=== PATIENT | male | born 1960 | race Caucasian/White ===

== ENCOUNTER 2016-02-25 06:52 | Observation (INO) | payer OTHER ==
[2016-02-13 11:20] VITALS: BMI 16.0
--- NOTE | 2016-02-13 12:01 | PAT Medication Instructions ---
Service Date Feb 13, 2016. Current Home Medication List Multivitamin (Multivitamin), 1 TAB PO QAM Medication Instructions For Your Scheduled Surgery - Hold the following medications the morning of surgery: Multivitamin (Multivitamin), 1 TAB PO QAM If you have any questions please call us at [phone] or [phone] ( [place]) or [phone]
[2016-02-13 12:47] LABS: BASO % 0.9 %; BASO ABS # 0.04 K/uL (0-0.2); COMPLETE YES; EOS % 2.5 %; HEMATOCRIT 43.3 % (42-52); LYMPH % 23.4 %; LYMPH ABS # 1.03 K/uL (1.2-3.4); MEAN CELL VOLUME 93.9 fL (80-100); MEAN CORPUSCULAR HEMOGLOBIN 32.5 pg (25-34); MEAN CORPUSCULAR HGB CONC 34.6 g/dl (32-36); MEAN PLATELET VOLUME 10.7 fL (7.4-10.4); MONO % 8.6 %; NEUT % 64.6 %; PLATELET COUNT 215 K/uL (130-400); RED BLOOD COUNT 4.61 M/uL (4.7-6.1); WHITE BLOOD COUNT 4.41 K/uL (4.8-10.8)
[2016-02-13 13:22] LABS: BUN/CREATININE RATIO 16.1 (10-20); CALCIUM 9.4 mg/dl (8.5-10.1); CREATININE 0.89 mg/dl (0.60-1.40); POTASSIUM 4.5 mmol/L (3.5-5.1)
[2016-02-25] VITALS (11 sets, daily range): BP systolic 87–107; BP diastolic 48–57; PULSE 43–58; TEMP 36.2–36.6; O2SAT 94–99; Ht 200.7 cm; Wt 65.9 kg
[~2016-02-25] VITALS: Ht 200.7 cm; Wt 65.9 kg
[~2016-02-25 06:52] MED LIST: CEFAZOLIN 2000 MG/60 ML D5W IV SCH; LACTATED RINGER'S 1000ML 1,000 ML IV SCH; MULT-506 PO
[2016-02-25] MEDS ORDERED: LEVO50TA6 PO (07:18)
[2016-02-25] MEDS ORDERED: MIDAZOLAM HCL 1 MG/ML 2ML VIAL ONE (07:38)
[2016-02-25] MEDS ORDERED: FENTANYL CITRATE INJ 50 MCG/1 ML 2 ML VIAL ONE (07:38)
[2016-02-25] MEDS ORDERED: PROPOFOL IV EMULSION 10 MG/ML 20 ML VIAL IV ONE (07:38)
[2016-02-25] MEDS ORDERED: ROCURONIUM BROMIDE 10 MG/ML 5 ML VIAL ONE (07:38)
[2016-02-25] MEDS ORDERED: LIDOCAINE HCL 2% 2 ML VIAL (20MG/ML) ONE (07:38)
--- NOTE | 2016-02-25 09:11 | History & Physical Bridge Note ---
H&P Re-Evaluation Bridge Note: I have examined the patient, reviewed the History & Physical and in the interval since the performance of the History & Physical I have noted the following changes of clinical significance: No changes noted
[2016-02-25] MEDS ORDERED: LACTATED RINGER'S 1000ML 1,000 ML IV PRN (09:16)
[2016-02-25] MEDS ORDERED: FENTANYL CITRATE INJ 50 MCG/1 ML 2 ML VIAL IV PRN (09:30)
[2016-02-25] MEDS ORDERED: ONDANSETRON INJ 2 MG/ML 2 ML VIAL IV PRN ×2 (09:30→11:00)
[2016-02-25] MEDS ORDERED: DEXAMETHASONE SOD INJ 4 MG/ML VIAL ONE (10:08)
[2016-02-25] MEDS ORDERED: EpHEDrine SULFATE 50MG/5ML SYR ONE (10:08)
[2016-02-25] MEDS ORDERED: ONDANSETRON INJ 2 MG/ML 2 ML VIAL ONE (10:08)
[2016-02-25] MEDS ORDERED: NEOSTIGMINE METHYLSULFATE 5 MG/5 ML SYR ONE (10:09)
[2016-02-25] MEDS ORDERED: GLYCOPYRROLATE INJ 0.2 MG/ML VIAL ONE (10:09)
[2016-02-25] MEDS ORDERED: CEFAZOLIN SOD 1 GM VIAL IRRIG ONE (10:52)
[2016-02-25] MEDS ORDERED: BUPIVACAINE 0.5 % 5 MG/1 ML MPF 30ML VIAL INJ ONE (10:52)
--- NOTE | 2016-02-25 10:55 | [facility] Operative Report ---
Operative Report Operative Date Feb 25, 2016. Pre-Operative Diagnosis Inguinal Hernia, Left. History of Right Inguinal Hernia. Right Inguinal Hernia. Post-Operative Diagnosis same Procedure(s) Performed bilateral inguinal hernia repair Surgeon Dr. Sandro Rice Management Consultant Surgeon(s) Tom Myers PA-C Estimated Blood Loss 20mL Findings direct defects Anesthesia gen Complication(s) None Disposition Recovery Room / PACU I attest to the content of the Intraoperative Record and any orders documented therein. Any exceptions are noted below.
[2016-02-25] MEDS ORDERED: HYDROCODONE/ACETAMOPHEN 5/325MG TAB PO PRN ×2 (11:00)
[2016-02-25] MEDS ORDERED: HYDROmorphone INJ 1 MG/ML SYR IV PRN ×2 (11:00)
[2016-02-25] MEDS ORDERED: PROMETHAZINE HCL INJ 25 MG in SODIUM CHLORIDE 0.9% 50ML 50 ML IV PRN (11:00)
--- NOTE | 2016-02-25 11:27 | OPERATIVE REPORT ---
DATE OF OPERATION: 02/25/2016 NAME OF OPERATION: Bilateral inguinal hernia repair. PREOPERATIVE DIAGNOSIS: Bilateral inguinal hernias. POSTOPERATIVE DIAGNOSIS: Same with direct defects. STAFF SURGEON: Dr. Rice. SHOE CEMENTER: Armin Myers PA-C. ANESTHESIA: General. PROCEDURE: The patient was brought in the operating room and placed on the operating table in supine position. His abdomen was prepped and draped in usual fashion. Arcos catheter was placed. 0.5% plain Marcaine was used to anesthetize both incisions bilaterally, skin and subcutaneous tissue and deep tissue. Incision was made in the right side parallel to the inguinal ligament, carrying dissection down identifying the external oblique fibers incising them along their length to the external ring mobilizing the cord structures, identifying a relatively large direct hernia sac on the right side. It was reduced. A large mesh plug was placed into the defect, secured to surrounding tissue using 2-0 Ethibond suture, then a large mesh patch placed over the plug and around the cord structures secured using 2-0 Ethibond suture. The site was irrigated with antibiotic solution. The external oblique fibers closed over the mesh around the cord structures using 2-0 Ethibond suture. The site was anesthetized using 0.5% plain Marcaine. Subcutaneous tissue reapproximated using 2-0 plain catgut suture then the skin reapproximated using 4-0 nylon suture. The left side was approached. Same incision was performed carrying dissection down through the external oblique fibers, identifying a smaller direct hernia sac which was reduced. Again, a mesh plug was used and secured in the same fashion with a mesh patch placed over this and around the cord structures both sides being careful to identify the ilioinguinal and iliohypogastric nerves. The subcutaneous tissue was then reapproximated using 2-0 plain catgut suture then the skin reapproximated using 4-0 nylon suture. Dressings were applied bilaterally. The patient transferred to recovery room in stable condition. I attest to the content of the Intraoperative Record and any orders documented therein. Any exceptio ns are noted below.
--- NOTE | 2016-02-25 11:37 | Anesthesiology Progress Note ---
Anesthesia Post Op Note Date & Time Feb 25, 2016 at 11:36 Vital Signs Pain Intensity: 0 Vital Signs Past 12 Hours Date Time Temp Pulse Resp B/P Pulse Ox O2 Delivery O2 Flow Rate FiO2 02/25/16 11:30 47 16 103/58 100 Nasal Cannula 2 02/25/16 11:20 49 14 105/61 100 Mask 10 02/25/16 11:10 58 20 109/60 100 Mask 10 02/25/16 11:07 36.2 52 15 110/65 100 Mask 10 02/25/16 07:18 36.2 51 16 99/53 99 Room Air Notes Mental Status: alert / awake / arousable, participated in evaluation Pt Amnestic to Procedure: Yes Nausea / Vomiting: adequately controlled Pain: adequately controlled Airway Patency, RR, SpO2: stable & adequate BP & HR: stable & adequate Hydration State: stable & adequate Anesthetic Complications: no major complications apparent
[2016-02-25] MEDS ORDERED: LACTATED RINGER'S 1000ML 1,000 ML IV SCH (13:30)
[2016-02-25] MEDS ORDERED: IV FLUIDS COMPLETED PRN (13:45)
[2016-02-25] MEDS: MAGNESIUM HYDROXIDE SUSP 30 ML UDC PO SCH (14:49)
[2016-02-25] MEDS: DOCUSATE SODIUM/SENNA 50/8.6MG TAB PO SCH (14:49)
[2016-02-25] MEDS ORDERED: CEPH500C2 PO (15:21)
[2016-02-25] MEDS ORDERED: HYDR-5688 PO (15:21)
--- NOTE | 2016-02-25 15:24 | Discharge Instructions ---
Discharge Instructions Admission Reason for Admission: Inguinal Hernia Discharge Discharge Diagnosis / Problem: bilateral inguinal hernias Discharge Goals Goal(s): Decrease discomfort, Improve function, Improve disease control Activity Recommendations Activity Limitations: as noted below Lifting Limitations: no more than 25 pounds Exercise/Sports Limitations: until after follow-up appointment May Resume Sexual Activity: when tolerated Shower/Bathe: tomorrow Driving or Machine Use: 1 week . Instructions / Follow-Up Instructions / Follow-Up SPECIAL CARE INSTRUCTIONS: * Cover incisions and change daily for comfort/drainage. * Avoid constipation- may use Milk of magnesia and Senokot S twice daily as directed on the package * May use ibuprofen for pain as tolerated. * Expect some swelling and bruising. Call your doctor if: * Temperature above 101 degrees * Pain not relieved by pain medicine ordered * There is increased drainage or redness from any incision * You have any unanswered questions or concerns [phone]. FOLLOW UP VISIT: If not already scheduled, please call the office for a follow-up visit. for next week- some sutures OFFICE PHONE NUMBER: Dr. Rice Office Current Hospital Diet Patient's current hospital diet: Regular Diet Discharge Diet Recommended Diet: Regular Diet Procedures Procedures Performed: Bilateral Inguinal Hernia repair with Mesh Pending Studies Studies pending at discharge: no Medical Emergencies . Who to Call and When: Medical Emergencies: If at any time you feel your situation is an emergency, please call 911 immediately. . Non-Emergent Contact Non-Emergency issues call your: Surgeon . "Provider Documentation" section prepared by Sandro Rice. VTE Core Measure Inpt VTE Proph given/why not?: SCD's
[2016-02-25] MEDS: CEFAZOLIN IV 1,000 MG in DEXTROSE 5% 50ML 50 ML IV SCH ×2 (15:34→22:12)
[2016-02-26] MEDS: CEFAZOLIN IV 1,000 MG in DEXTROSE 5% 50ML 50 ML IV SCH ×2 (03:55→10:59)
[2016-02-26 03:57] VITALS: BP 101/64; PULSE 46; TEMP 36.3; O2SAT 94
[2016-02-26] MEDS ORDERED: LEVOTHYROXINE 50 MCG TAB PO SCH (06:00)
--- NOTE | 2016-02-26 07:11 | DISCHARGE SUMMARY ---
PRINCIPAL DIAGNOSIS: Bilateral inguinal hernias. PROCEDURE: The patient underwent open bilateral inguinal hernia repair. HISTORY OF PRESENT ILLNESS: The patient is a 56-year-old male with enlarging inguinal hernias brought into the hospital for elective repair. The patient was brought into the hospital on 02/25/2016 where he underwent bilateral open inguinal hernia repair which he tolerated well. Subsequently transferred to the regular nursing floor and has done well overnight and is felt stable for discharge home to be followed in the surgical clinic next week.
[2016-02-26 08:00] VITALS: BP 95/57; PULSE 43; TEMP 36.4; O2SAT 97
--- NOTE | 2016-02-26 08:18 | Anesthesiology Progress Note ---
Anesthesia Post Op Note Date & Time Feb 26, 2016 at 08:17 Vital Signs Pain Intensity: 0.0 Vital Signs Past 12 Hours Date Time Temp Pulse Resp B/P Pulse Ox O2 Delivery O2 Flow Rate FiO2 02/26/16 08:11 Room Air 02/26/16 08:00 36.4 43 16 95/57 97 Room Air 02/26/16 03:57 36.3 46 16 101/64 94 Room Air 02/25/16 23:50 Room Air 02/25/16 22:53 36.6 43 16 92/57 96 Room Air 02/25/16 20:50 36.4 45 16 90/53 94 Room Air Notes Mental Status: alert / awake / arousable, participated in evaluation Pt Amnestic to Procedure: Yes Nausea / Vomiting: adequately controlled Pain: adequately controlled Airway Patency, RR, SpO2: stable & adequate BP & HR: stable & adequate Hydration State: stable & adequate Anesthetic Complications: no major complications apparent
[2016-02-26] MEDS: MAGNESIUM HYDROXIDE SUSP 30 ML UDC PO SCH (09:34)
[2016-02-26] MEDS: DOCUSATE SODIUM/SENNA 50/8.6MG TAB PO SCH (09:34)
[2016-02-26 10:32] VITALS: BP 95/57; PULSE 43; TEMP 36.4; O2SAT 97
== END 2016-02-26 11:40 | disposition home or self-care (01) ==
LOC: ENRESERVDT → ENRESERVTM → C.ACU 06:52 → C.2E 11:00 → C.MSN 16:06
PROVIDERS: ADMIT Surgery; ATTEND Surgery
DX: K40.20 Bilateral inguinal hernia, without obstruction or gangrene, not specified as recurrent (principal); R97.20 Elevated prostate specific antigen [PSA]; Z82.49 Family history of ischemic heart disease and other diseases of the circulatory system; Z80.0 Family history of malignant neoplasm of digestive organs

== ENCOUNTER → 2016-03-30 | Outpatient (CLI) | payer OTHER ==
[~2016-03-30] MED LIST changes: -CEFAZOLIN 2000 MG/60 ML D5W IV SCH; +CEPH500C2 PO; +HYDR-5688 PO; -LACTATED RINGER'S 1000ML 1,000 ML IV SCH; +LEVO50TA6 PO
[2016-03-30 12:58] LABS: THYROID STIMULATING HORMONE 2.45 uIu/ml (0.300-4.500)
== END | disposition home or self-care (01) ==
LOC: C.LABBFT 10:17
PROVIDERS: ATTEND Internal Medicine
DX: E03.9 Hypothyroidism, unspecified (principal)

== ENCOUNTER → 2016-06-21 | Day surgery (SDC) | payer OTHER ==
[2016-06-10 13:24] VITALS: Ht 200.7 cm; Wt 64.5 kg
[~2016-06-21] VITALS: Ht 200.7 cm; Wt 64.5 kg
[~2016-06-21] MED LIST changes: -CEPH500C2 PO; -HYDR-5688 PO; +LIDOCAINE HCL 2% 2 ML VIAL (20MG/ML) ONE; +PROPOFOL IV EMULSION 10 MG/ML 20 ML VIAL IV ONE; +SODIUM CHLORIDE 0.9% 500ML 500 ML IV ONE
--- NOTE | 2016-06-21 15:18 | Endo History and Physical ---
History & Physical Date of Service: June 21, 2016. Chief Complaint: screening Referring Physician: Dr. Kurt Barba History of Present Illness 56 yo CM who presents for screening colonoscopy. Past Medical History Liver Disease Past Surgical History Hx Cardiac Surgery: No Hx Internal Defibrillator: No Hx Pacemaker: No Hx Abdominal Surgery: Yes (HERNIA REPAIR X2) Hx of Implantable Prosthesis: No Hx Post-Op Nausea and Vomiting: No Hx Cancer Surgery: No Hx Thoracic Surgery: No Hx Orthopedic: No Hx Urinary Tract Surgery: No Family History None Social History Smoking Status: Former Smoker Hx Substance Use: No Hx Alcohol Use: No Allergies Coded Allergies: Morphine (Verified Adverse Reaction, Mild, Abd. Pain, 06/10/16) NSAIDs (Verified Adverse Reaction, Unknown, NOT TO TAKE DUE TO ULCER HISTORY, 06/10/16) Per , patient is not to receive any NSAIDS 07/17/14 admission due to perforated ulcer. Current Medications Reported Home Medications Medications Dose Route/Sig Max Daily Dose Days Date Category Multivitamin (Multivitamins) Tab 1 Tab PO QAM 02/13/16 Reported Vital Signs Weight (Kilograms): 64.55 Height (Feet): 6 Height (Inches): 7 Physical Exam General Appearance: WD/WN, no apparent distress Respiratory/Chest: Auscultation: breath sounds normal Cardiovascular: Heart Auscultation: RRR Abdomen: Bowel Sounds: normal Inspection & Palpation: soft, non-distended, no tenderness, guarding & rebound Assessment and Plan Assessment: 56 yo CM who presents for screening colonoscopy. Plan: Proceed with colonoscopy.
--- NOTE | 2016-06-21 16:32 | Anesthesiology Progress Note ---
Anesthesia Post Op Note Date & Time June 21, 2016 at 16:32 Vital Signs Pain Intensity: 3 Vital Signs Past 12 Hours Date Time Temp Pulse Resp B/P Pulse Ox O2 Delivery O2 Flow Rate FiO2 06/21/16 16:21 59 20 130/62 98 Room Air 06/21/16 15:16 36.7 56 20 98/48 99 Room Air Notes Mental Status: alert / awake / arousable, participated in evaluation Pt Amnestic to Procedure: Yes Nausea / Vomiting: adequately controlled Pain: adequately controlled Airway Patency, RR, SpO2: stable & adequate BP & HR: stable & adequate Hydration State: stable & adequate Anesthetic Complications: no major complications apparent
--- NOTE | 2016-06-21 16:33 | Discharge Instructions ---
Endoscopy Patient Instructions Date / Procedure(s) Performed June 21, 2016. Colonoscopy Allergy Information Coded Allergies: Morphine (Verified Adverse Reaction, Mild, Abd. Pain, 06/10/16) NSAIDs (Verified Adverse Reaction, Unknown, NOT TO TAKE DUE TO ULCER HISTORY, 06/10/16) Per , patient is not to receive any NSAIDS 07/17/14 admission due to perforated ulcer. Discharge Date / Findings June 21, 2016. Internal hemorrhoids Medication Instructions Stopped Medication(s): last dose MVI Tuesday OK to return to our office today as prescribed Reported Home Medications Medications Dose Route/Sig Max Daily Dose Days Date Category Multivitamin (Multivitamins) Tab 1 Tab PO QAM 02/13/16 Reported Provider Instructions Activity Restrictions - No exercising or heavy lifting for 24 hours. - Do not drink alcohol the day of the procedure. - Do not drive a car or operate machinery until the day after the procedure. - Do not make any important decisions or sign important papers in 24 hours after the procedure. Following Day: - Return to full activity which may include returning to work/school. Diet Start your diet with liquids and light foods (jello, soup, juice, toast). Then eat your usual diet if not nauseated. Treatment For Common After Affects For mild abdominal pain, bloating, or excessive gas: - Rest - Eat lightly - Lie on right side Follow-Up Information Follow-up with Dr. Kurt Barba as scheduled Anesthesia Information What You Should Know You have had a procedure that required some medicine to reduce anxiety and discomfort. This treatment is called moderate sedation. After receiving the treatment, you may be sleepy, but you will be able to breathe on your own. The effects of the treatment may last for several hours. Follow these instructions along with Activity/Diet recommendations noted above: * Do NOT do anything where dizziness or clumsiness would be dangerous. * Rest quietly at home today, then you can be up and about tomorrow. * Have a responsible person stay with you the rest of today. * You may have had an I.V. today. If so, you may take the dressing off later today. Recommendations Call your doctor if: * Trouble breathing * Continuous vomiting for more than 24 hours * Temperature above 101 degrees * Severe abdominal pain or bloating * Pain not relieved by pain medicine ordered * There is increased drainage or redness from any incision * A large amount of rectal bleeding greater than 2-3 tablespoons. (If you had a polyp/s removed or have hemorrhoids, a small amount of blood - from the rectum is to be expected.) * You have any unanswered questions or concerns. IN THE EVENT OF A SERIOUS EMERGENCY, GO TO THE NEAREST EMERGENCY ROOM Your discharge instructions were prepared by provider Shaquille Piedra. Patient Instructions Signature Page Ahsan Fletcher Patient (or Guardian) Signature/Date: I have read and understand the instructions given to me by my caregivers. Caregiver/RN/Doctor Signature/Date: The above-named patient and/or guardian has received patient instructions on this date. + Original Patient Signature Page (only) stays with chart. Please make copy for patient.
--- NOTE | 2016-06-21 16:42 | GI REPORT ---
Procedure Date: 06/21/2016 3:15 PM Procedure: Colonoscopy Indications: Screening for colorectal malignant neoplasm Medicines: Monitored Anesthesia Care Complications: No immediate complications. Estimated Blood Loss: Estimated blood loss: none. Procedure: Pre-Anesthesia Assessment: - Prior to the procedure, a History and Physical was performed, and patient medications and allergies were reviewed. The patient's tolerance of previous anesthesia was also reviewed. The risks and benefits of the procedure and the sedation options and risks were discussed with the patient. All questions were answered, and informed consent was obtained. Prior Anticoagulants: The patient has taken no previous anticoagulant or antiplatelet agents. ASA Grade Assessment: II - A patient with mild systemic disease. After reviewing the risks and benefits, the patient was deemed in satisfactory condition to undergo the procedure. After I obtained informed consent, the scope was passed under direct vision. Throughout the procedure, the patient's blood pressure, pulse, and oxygen saturations were monitored continuously. The scope was introduced through the anus and advanced to the terminal ileum. The colonoscopy was performed without difficulty. The patient tolerated the procedure well. The quality of the bowel preparation was good. The terminal ileum, the appendiceal orifice and the rectum were photographed. Findings: Non-bleeding internal hemorrhoids were found during retroflexion. The hemorrhoids were small. The exam was otherwise without abnormality. Impression: - Non-bleeding internal hemorrhoids. - The examination was otherwise normal. - No specimens collected. Recommendation: - Resume previous diet. - Continue present medications. - Repeat colonoscopy in 10 years for surveillance. - Return to primary care physician as previously scheduled. Shaquille Piedra DO 06/21/2016 4:41:15 PM This report has been signed electronically. Note Initiated On: 06/21/2016 3:15 PM I attest to the content of the Intraoperative Record and orders documented therein, exceptions below
[2016-06-21 16:53] VITALS: BP 135/73; PULSE 63; O2SAT 99
== END | disposition home or self-care (01) ==
LOC: C.GI 14:12
PROVIDERS: ATTEND Internal Medicine
DX: Z12.11 Encounter for screening for malignant neoplasm of colon (principal); K64.8 Other hemorrhoids; K76.9 Liver disease, unspecified; Z87.891 Personal history of nicotine dependence

== ENCOUNTER → 2016-08-19 | Outpatient (CLI) | payer OTHER ==
[~2016-08-19] MED LIST changes: -LIDOCAINE HCL 2% 2 ML VIAL (20MG/ML) ONE; -PROPOFOL IV EMULSION 10 MG/ML 20 ML VIAL IV ONE; -SODIUM CHLORIDE 0.9% 500ML 500 ML IV ONE
[2016-08-19 17:41] LABS: HEMATOCRIT 46.4 % (42-52); MEAN CELL VOLUME 95.3 fL (80-100); MEAN CORPUSCULAR HEMOGLOBIN 31.4 pg (25-34); PLATELET COUNT 236 K/uL (130-400); RED BLOOD COUNT 4.87 M/uL (4.7-6.1); WHITE BLOOD COUNT 5.78 K/uL (4.8-10.8)
[2016-08-20 06:23] LABS: ESTIMATED AVERAGE GLUCOSE 100 mg/dl; HA1C FLAG Normal (Normal)
== END | disposition home or self-care (01) ==
LOC: C.LABBFT 11:17
PROVIDERS: ATTEND Physician Assistant Medical
DX: K21.9 Gastro-esophageal reflux disease without esophagitis (principal); R73.9 Hyperglycemia, unspecified; E03.9 Hypothyroidism, unspecified

== ENCOUNTER → 2017-03-03 | Outpatient (CLI) | payer OTHER ==
[2017-03-03 18:27] LABS: ALBUMIN 4.2 gm/dl (3.4-5.0); ALT/SGPT 23 U/L (12-78); AST/SGOT 21 U/L (15-37); BLOOD UREA NITROGEN 14 mg/dl (7-18); CALCIUM 9.8 mg/dl (8.5-10.1); CARBON DIOXIDE 29 mmol/L (21-32); CREATININE 0.98 mg/dl (0.60-1.40); GLUCOSE 81 mg/dl (70-99); SODIUM 138 mmol/L (136-145)
[2017-03-03 18:39] LABS: ALKALINE PHOSPHATASE 79 U/L (45-117); CHOLESTEROL 182 mg/dl (0-200); LDL CHOLESTEROL CALCULATED 87 mg/dl
[2017-03-04 07:14] LABS: HEMOGLOBIN A1C 5.2 % (4.5-5.6)
== END | disposition home or self-care (01) ==
LOC: C.LABBFT 14:00
PROVIDERS: ATTEND Internal Medicine
DX: N40.0 Benign prostatic hyperplasia without lower urinary tract symptoms (principal); E03.9 Hypothyroidism, unspecified; R73.9 Hyperglycemia, unspecified

== ENCOUNTER → 2017-04-19 | Outpatient (CLI) | payer OTHER | END | disposition home or self-care (01) | LOC: C.LABBFT 14:48 | PROVIDERS: ATTEND Urology | DX: R97.20 Elevated prostate specific antigen [PSA] (principal) ==

== ENCOUNTER → 2017-06-07 | Outpatient (CLI) | payer OTHER ==
[~2017-06-07] MED LIST changes: +GADAVIST IV PRN
--- NOTE | 2017-06-07 12:02 | DIAGNOSTIC IMAGING REPORT ---
PROSTATE MRI COMBO CLINICAL HISTORY: 57 years-old Male presenting with abnormal digital rectal exam. PSA 6.04 ng/mL on 04/19/2017. TECHNIQUE: Multisequence, multiplanar MR imaging of the prostate was performed before and after the administration of intravenous contrast. Additional postprocessing was performed on a separate [employer] workstation by the radiologist for 3-D volumetric segmentation of the prostate and contouring of region(s) of interest (WINSOME) for targeting. IV contrast: 6.5 mL of Gadavist. COMPARISON: CT of abdomen pelvis from 2014. FINDINGS: Prostate: The prostate measures 5.2 x 4.2 x 4.3 cm (DynaCAD prostate boundary segmentation volume 42 mL). MR-PSA density (PSA/prostate volume): 0.14 .Moderate changes of benign prostatic hyperplasia. Prominent residual central zone noted bilaterally at the base. Precontrast T1 weighted imaging demonstrates no evidence of intrinsic T1 hyperintensity to suggest hemorrhage. No suspicious lesion is apparent in the transition or peripheral zones. Seminal vesicles normal. Bladder: Bladder wall thickening likely indicating chronic outlet obstruction. Bowel: Visualized portion of the rectum normal. Peritoneum: No free fluid in the pelvis. Lymph nodes: No lymphadenopathy in the visualized portion of the pelvis. Vasculature: Iliac vessels patent. Abdominal wall: Normal. Osseous structures: Normal bone marrow signal intensity. IMPRESSION: 1. No suspicious lesion in the transition or peripheral zones for targeted biopsy. 2. Benign prostatic hyperplasia. Electronically signed by: Guru Upton M.D. 06/07/2017 12:01 PM Dictated Date/Time: 06/07/2017 11:55 AM
== END | disposition home or self-care (01) ==
LOC: C.MRIBC 10:01
PROVIDERS: ATTEND Urology
DX: R97.20 Elevated prostate specific antigen [PSA] (principal)